=== PATIENT | male | born 1955 | race African-American/Black ===

== ENCOUNTER 2018-01-12 06:17 | Emergency (ER) | payer OTHER ==
[~2018-01-12] VITALS: Ht 188 cm; Wt 93.0 kg
--- NOTE | ~2018-01-12 | EKG ---
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[facility] : [id number] Requested By: Dorothy Duran Order Number: [id number] MD: Stewart Agosto Measurements Intervals [place] Rate: 68 P: 46 [place]: 179 QRS: -2 QRSD: 80 T: 22 QT: 416 QTc: 443 Interpretive Statements Sinus rhythm Low voltage, extremity leads Probable anteroseptal infarct, old Baseline wander in lead(s) V3 No previous ECG available for comparison Electronically Signed On 01-12-2018 8:41:06 CDT by Stewart Agosto [email or web address] <ELECTRONICALLY SIGNED> By: Stewart Agosto MD, [facility] 01/12/18 0841 5 5 Stewart Agosto MD, [facility] /EPI
[~2018-01-12 06:17] MED LIST: IBUPROFEN 800800 M1 PO; INDOMETHACIN 5050 M1 PO; MORPHINE SULFAT60 M2 PO; NAPROSYN375 MG; NAPROSYN500 MG PO; NORCO 5-325 TA1 EACH PO; OXYCODONE HCL20 M1 PO; PERCOCET 10-321 EACH; PERCOCET 10-321 EACH PO; VALIUM2 MG PO
[2018-01-12] MEDS ORDERED: LEUPROLIDE (06:28)
[2018-01-12 07:21] LABS: ABSOLUTE NEUTROPHILS 4.1 thou/uL (1.4-8.2); BASOPHILS 0.5 % (0.0-2.0); EOSINOPHILS 1.8 % (0.0-3.0); HEMATOCRIT 33.8 % (42.0-52.0); HEMOGLOBIN 11.2 gm/dL (14.0-18.0); LYMPHOCYTES 26.7 % (24.0-44.0); MCH 28.4 pg (26.0-34.0); MCHC 33.3 g/dL (28.0-37.0); MCV 85.5 fL (80.0-100.0); MONOCYTES 6.1 % (1.0-8.0); PLATELET COUNT 167 thou/uL (150-400); POLYS 64.9 % (36.0-66.0); RBC 3.95 mil/uL (4.50-6.00); RDW 13.6 % (10.5-14.5); WBC 6.4 thou/uL (4.0-11.0)
[2018-01-12 07:25] LABS: CALCIUM 8.9 mg/dL (8.5-10.1); CREATININE 1.3 mg/dL (0.7-1.3); POTASSIUM 3.7 mmol/L (3.5-5.1)
== END 2018-01-12 09:01 | disposition home or self-care (01) ==
LOC: ER 06:17
PROVIDERS: Student in an Organized Health Care Education/Training Program
DX: F41.0 Panic disorder [episodic paroxysmal anxiety] (principal); R06.4 Hyperventilation; F41.9 Anxiety disorder, unspecified; M25.50 Pain in unspecified joint; G89.29 Other chronic pain; F17.210 Nicotine dependence, cigarettes, uncomplicated; Z85.46 Personal history of malignant neoplasm of prostate

== ENCOUNTER 2019-10-23 19:14 | Emergency (ER) | payer OTHER ==
[~2019-10-23] VITALS: Ht 188 cm; Wt 90.7 kg
[~2019-10-23 19:14] MED LIST changes: +LEUPROLIDE
[2019-10-23 19:17] VITALS: BP 141/84
[2019-10-23] MEDS ORDERED: NORCO 10-325 T1 EACH PO (19:34)
[2019-10-23] MEDS ORDERED: PERCOCET 10-321 EACH PO (20:22)
== END 2019-10-23 20:00 | disposition home or self-care (01) ==
LOC: ER 19:14
DX: G89.29 Other chronic pain (principal); M19.90 Unspecified osteoarthritis, unspecified site; F17.210 Nicotine dependence, cigarettes, uncomplicated; Z79.899 Other long term (current) drug therapy